=== PATIENT | female | born 1985 | race African-American/Black ===

== ENCOUNTER 2017-11-12 10:31 | Emergency (ER) | payer MEDICAID ==
[~2017-11-12] VITALS: Ht 170.2 cm; Wt 131.5 kg
[2017-11-12] MEDS ORDERED: Ondansetron ODT 8mg tab ORAL ONE (11:00)
[2017-11-12 11:23] VITALS: BP 162/91
--- NOTE | 2017-11-12 13:54 | Emergency Room Report ---
Physical Exam Vital Signs Date Time Temp Pulse Resp B/P (MAP) Pulse Ox O2 Delivery O2 Flow Rate FiO2 11/12/17 10:44 98.4 162/91 98.4 Medical Decision Making ER Course LWBS Last Vital Signs Date Time Temp Pulse Resp B/P (MAP) Pulse Ox O2 Delivery O2 Flow Rate FiO2 11/12/17 10:44 98.4 162/91 98.4 Referrals: NON PHYSICIAN (PCP) Paula Chacon DO Nov 12, 2017 13:54
== END 2017-11-12 11:23 | disposition left against medical advice (07) ==
LOC: EMR 11:05
DX: F91.9 Conduct disorder, unspecified (principal); Z53.21 Procedure and treatment not carried out due to patient leaving prior to being seen by health care provider
CPT/HCPCS: 99281